=== PATIENT | male | born 2000 ===

== ENCOUNTER 2019-05-07 09:16 | Outpatient (REF) | payer BC, SELFPAY ==
[2019-05-07 19:53] LABS: Cholesterol 133 mg/dL (<200); Glucose 90 mg/dL (74-106); HDL Cholesterol 48 mg/dL (40-60)
[2019-05-07 20:04] LABS: Triglyceride < 25 mg/dL (<150)
[2019-05-07 20:42] LABS: LDL CHOLESTEROL 76 mg/dL (<100)
== END 2019-05-07 09:36 ==
LOC: NCHCN 09:16
PROVIDERS: PCP Nurse Practitioner Family; Visit Provider Nurse Practitioner Family
DX: Z13.1 Encounter for screening for diabetes mellitus (principal); Z13.220 Encounter for screening for lipoid disorders
CPT/HCPCS: 80061; 82947; 83721

== ENCOUNTER 2020-10-21 18:40 | Outpatient (REF) | payer BC, SELFPAY ==
[2020-10-22 15:54] LABS: COVID-19 RT-PCR UVMMC Result Negative (Negative)
== END 2020-10-21 18:41 | disposition home or self-care (01) ==
LOC: NCHCN 18:40
PROVIDERS: PCP Nurse Practitioner Family; Visit Provider Nurse Practitioner Family
DX: Z20.822 Contact with and (suspected) exposure to COVID-19 (principal)
CPT/HCPCS: U0003